=== PATIENT | male | born 1995 | race Two or more races ===

== ENCOUNTER 2021-03-11 00:52 | Emergency (ER) | payer OTHER ==
[~2021-03-11] VITALS: Ht 162.6 cm; Wt 65.8 kg
[2021-03-11] MEDS ORDERED: ACETAMINOPHEN650 M2 PO (09:15)
[2021-03-11] MEDS ORDERED: AZITHROMYCIN500 MG PO (09:15)
[2021-03-11] MEDS ORDERED: MUCINEX DM ER1 EAC1 PO (09:15)
[2021-03-11] MEDS ORDERED: IVERMECTIN3 MG PO (09:15)
[2021-03-11] MEDS ORDERED: MELATONIN10 M2 PO (09:15)
[2021-03-11] MEDS ORDERED: COLCHICINE0.6 MG PO (09:15)
[2021-03-11] MEDS ORDERED: VITAMIN D3-ALO1 EACH PO (09:20)
[2021-03-11] MEDS ORDERED: VITAMIN C WIT1000 MG PO (09:20)
[2021-03-14] MEDS ORDERED: ACETAMINOPHEN650 M2 (14:56)
== END 2021-03-11 10:35 | disposition home or self-care (01) ==
LOC: ER 00:52
DX: U07.1 COVID-19 (principal)

== ENCOUNTER 2022-04-14 07:47 | Emergency (ER) | payer OTHER ==
[~2022-04-14] VITALS: Ht 162.6 cm; Wt 68.0 kg
[~2022-04-14 07:47] MED LIST: ACETAMINOPHEN650 M2; ACETAMINOPHEN650 M2 PO; AZITHROMYCIN500 MG PO; COLCHICINE0.6 MG PO; IVERMECTIN3 MG PO; MELATONIN10 M2 PO; MUCINEX DM ER1 EAC1 PO; VITAMIN C WIT1000 MG PO; VITAMIN D3-ALO1 EACH PO
== END 2022-04-14 09:30 | disposition home or self-care (01) ==
LOC: ER 07:47
DX: J06.9 Acute upper respiratory infection, unspecified (principal)

== ENCOUNTER 2022-06-27 19:41 | Emergency (ER) | payer OTHER ==
[~2022-06-27] VITALS: Ht 165.1 cm; Wt 72.6 kg
== END 2022-06-27 20:53 | disposition home or self-care (01) ==
LOC: ER 19:41
DX: M62.838 Other muscle spasm (principal)

== ENCOUNTER 2025-06-26 07:59 | Emergency (ER) | payer OTHER ==
[~2025-06-26] VITALS: Ht 162.6 cm; Wt 70.3 kg
[2025-06-26 08:29] VITALS: BP 109/68; O2SAT 97
[2025-06-26] MEDS ORDERED: DEXAMETHASONE SODIUM PHOSPHATE 4 MG/ML VIAL IM STA (08:48)
[2025-06-26] MEDS ORDERED: CLOTRIMAZOLE-BE15 GM TOP (08:53)
[2025-06-26] MEDS ORDERED: DIPHENHYDRAMINE HCL 50 MG/ML VIAL 1ML ONE (08:56)
[2025-06-26] MEDS ORDERED: DEXAMETHASONE SODIUM PHOSPHATE 4 MG/ML VIAL ONE (08:57)
[2025-06-26] MEDS ORDERED: DIPHENHYDRAMINE HCL 50 MG/ML VIAL 1ML IM ONE (09:00)
== END 2025-06-26 10:50 | disposition home or self-care (01) ==
LOC: ER 08:00
DX: R21 Rash and other nonspecific skin eruption (principal)